=== PATIENT | male | born 1965 | race Caucasian/White ===

== ENCOUNTER 2023-03-27 14:30 | Outpatient (CLI) | payer OTHER, SELFPAY ==
--- NOTE | 2023-03-27 14:41 | USCV_ITS ---
Gilda Curry Age: 57 Gender: M : 1965 Exam Date: 03/27/2023 15:01 Ordering Phys: Nora Lakhani Technologist: Exam Location: [facility] [place] Indication: [id number] [id number] BP: 122 / 78 HR: Rhythm: Sinus Technical Quality: Adequate MEASUREMENTS (Male / Female) Normal Values 2D ECHO LV Diastolic Diameter PLAX 4.4 cm 4.2 - 5.9 / 3.9 - 5.3 cm LV Systolic Diameter PLAX 2.4 cm IVS Diastolic Thickness 1.1 cm 0.6 - 1.0 / 0.6 - 0.9 cm IVS Systolic Thickness 1.6 cm LVPW Diastolic Thickness 1.2 cm 0.6 - 1.0 / 0.6 - 0.9 cm LVPW Systolic Thickness 1.7 cm LVOT Diameter 2.1 cm LV Ejection Fraction 2D Teich 67.5 % LV Ejection Fraction MOD 2C 65.3 % LV Ejection Fraction 2C AL 63.0 % LA Diameter 4.5 cm M-MODE Aortic Annulus Diameter 3.6 cm LA Ao Ratio MM 1.3 MV E Point Septal Separation 0.8 cm FINDINGS Left Ventricle Right Ventricle Right Atrium Left Atrium Mitral Valve Aortic Valve Tricuspid Valve Pulmonic Valve Pericardium Aorta IVC CONCLUSIONS Limited echocardiogram performed to assess LV systolic function. LV systolic function is normal with EF of 60 to 65%. No regional wall motion abnormalities are seen. Mildly dilated ascending aorta. IVC is normal in size No comparison studies are available. Lukas Donovan MD (Electronically Signed) Final Date: 07 April 2023 16:57 S
== END 2023-03-27 14:31 | disposition home or self-care (01) ==
PROVIDERS: PCP Family Medicine; Visit Provider Nurse Practitioner Family
DX: Z95.1 Presence of aortocoronary bypass graft (principal); I77.819 Aortic ectasia, unspecified site
CPT/HCPCS: 93308